=== PATIENT | female | born 1970 | race Caucasian/White ===

== ENCOUNTER 2018-07-14 09:47 | Emergency (ER) | payer OTHER, SELFPAY ==
[2018-07-14 09:52] VITALS: PULSE 71; RESP 18; TEMP 36.8; O2SAT 100
--- NOTE | 2018-07-14 10:00 | W.ED.GENAD ---
Discharge Plan Disposition Patient Disposition: HOME Condition: Stable Discharge Details Chief Complaint: Nk/Back Pain Clinical Impression: Sciatica Primary Care Provider: Sharri Campos ED Provider: Damaris Cowan Home Meds and New Rx's Prescriptions: New prednisone 20 mg tablet See Rx Instructions .ROUTE .COMPLEX Qty: 12 RF: 0 methocarbamol 750 mg tablet 750 mg PO Q8H PRN (Reason: muscle spasm) Qty: 14 RF: 0 Continued hsxjsxkuajyl-omld-cgkuo acid [Daily Multiple] 1 EACH tablet 1 ea PO DAILY RF: 0 Thrive supplement 1 dose PO DAILY RF: 0 Discharge Instructions Instructions: Sciatica (ED) Additional Instructions: Alternate Tylenol and Motrin as needed and directed for pain. Take the muscle relaxers as needed and directed for muscle spasm. Take the steroids until finished. Follow-up with your primary care doctor next week for reevaluation. Return immediately to the emergency department with any worsening or concerning symptoms. Discharge Data Discharge Physician: Damaris Cowan Medical Decision Making 48-year-old female with a history of sciatica who is very active with exercise who presents with left buttock pain with radiation of pain down left leg to left foot for the past 4 days. Denies cauda equina symptoms. Vitals within normal limits. Patient appears nontoxic. Normal examination to lower back and buttocks. No tenderness to palpation of the back or buttocks. Neurovascularly intact. Last menstrual period 3 weeks ago. Patient denies chance of . Patient refusing test. As patient has an essentially normal exam, with no evidence of trauma, infection, rash and is neurovascularly intact, does not appear consistent with a neurological process or muscle spasm or strain and appears likely consistent with sciatica. Patient offered dose of steroids here but she declines. Will send home with a prescription for prednisone and methocarbamol. She is instructed to alternate Tylenol and Motrin, ice and heat and to continue stretching. She is instructed to refrain from heavy exercise while symptoms present. She is instructed follow with primary care doctor for reevaluation and return here if worse. HPI General Mode of arrival: ambulatory. Date/Time Provider Initiated Documentation: 07/14/18 10:00. Limitations to Documentation: no limitations. Information obtained by: patient. HPI Narrative: Patient is a 48-year-old female with a history of sciatica who presents with concern for sciatica for the past 4 days. Patient states she took a spin class 6 days ago and then 1-2 days later she developed pain in her left buttock rating down to her left foot. She states the pain is worse with sitting, laying down and when driving but better with standing. She has been taking ibuprofen and applying ice without relief. She states she is very active and she does boxing, lifting, and she does often stretch. She denies fever, abdominal pain, leg weakness or numbness, saddle anesthesia, bowel or bladder incontinence. Related Data Home Medications Medication Instructions Recorded Confirmed mpfxznhaljlz-ijrm-uezrc acid 1 ea PO DAILY 06/01/14 09/26/15 [Daily Multiple] Thrive Supplement 1 dose PO DAILY 11/28/15 methocarbamol 750 mg PO Q8H PRN #14 tab 07/14/18 prednisone See Rx Instructions .ROUTE 07/14/18 .COMPLEX #12 tab Previous Rx's Medication Instructions Recorded methocarbamol 750 mg PO Q8H PRN #14 tab 07/14/18 prednisone See Rx Instructions .ROUTE 07/14/18 .COMPLEX #12 tab Allergies Allergy/AdvReac Type Severity Reaction Status Date / Time Penicillins Allergy Severe Hives Unverified 08/09/17 12:53 General Stated Complaint: Nk/Back Pain MARJORIE: 4 Review of Systems Review of Systems All systems reviewed & are unremarkable except as noted in HPI and below Constitutional Reports as per HPI, Denies chills and Denies fever(s) Eyes Denies blurry vision ENT Denies dizziness, Denies sore throat and Denies throat swelling Cardiovascular Denies chest pain and Denies dyspnea Respiratory Denies cough and Denies dyspnea Gastrointestinal Denies abdominal pain, Denies diarrhea and Denies vomiting Genitourinary Denies hematuria and Denies dysuria Musculoskeletal Reports back pain, Denies numbness and Reports other (L buttock pain with radiation down leg to foot) Integumentary/Breasts Denies lesions and Denies rash Neurologic Denies dizziness, Denies focal weakness and Denies numbness Allergic/Immunologic Denies throat swelling [facility] Medical History Lumbar disc herniation (Acute) Sciatica (Acute) Surgical History section Social History (Reviewed 07/14/18 @ 10:22 by QUE Martinez Smoking/Tobacco Use Status: Never Alcohol Intake: never Drug use: Never Do you feel safe at home: Yes Do you feel safe in your relationship?: Yes Exam Const General: cooperative, healthy appearing and no acute distress HENMT Head: normal to inspection Face and sinus: normal facial exam Eyes General: appearance normal, both eyes and all related structures EOM: EOM intact bilaterally Neck Neck: normal visual inspection and No submandibular swelling Chest Chest: normal inspection of the chest and no tenderness Resp Effort & Inspection: normal respiratory effort and able to speak in complete sentences Auscultation: clear to auscultation bilaterally Cardio Rate: regular rate Rhythm: regular rhythm GI Inspection: normal to inspection Palpation: soft, not firm, not rigid and nontender Auscultation: normal bowel sounds Back/Spine/Pelvis Thoracic/Lumbar Spine: thoracic and lumbar spine normal to inspection, No thoracic spinal tenderness and No lumbar spinal tenderness Sacrum: no ecchymosis, no erythema, no swelling and no tenderness Coccyx: no swelling Skin General skin exam: no rashes or lesions noted Neuro General: alert, awake and oriented x3 Cognition: normal cognition Speech: speech normal Motor: muscle tone normal throughout and strength 5/5 throughout Sensory Exam: no sensory deficits noted DTR's: Rt Patellar: 1+, Lt Patellar: 1+, Rt Ankle: 1+ and Lt Ankle: 1+ Plantar Reflexes: Equivocal: bilateral Extrem General: normal to inspection, full ROM and no edema Psych Appearance: grossly normal Mental Status: mental status grossly normal Speech and Movement: speech and movement normal Affect: normal affect Course Vital Signs Temperature 98.2 F 07/14/18 09:52 Pulse 71 07/14/18 09:52 Respiratory Rate 18 07/14/18 09:52 Pulse Oximetry 100 07/14/18 09:52 Temperature 98.2 F 07/14/18 09:52 Pulse 71 07/14/18 09:52 Respiratory Rate 18 07/14/18 09:52 Respiratory Effort Non-Labored 07/14/18 09:54 Pulse Oximetry 100 07/14/18 09:52 Oxygen Delivery Method Room Air 07/14/18 09:52 Oxygen Flow Rate 0 07/14/18 09:52 Pain Level 6 07/14/18 09:52
== END 2018-07-14 10:20 | disposition home or self-care (01) ==
PROVIDERS: Emergency Provider Physician Assistant; PCP Family Medicine
DX: M54.32 Sciatica, left side (principal)
CPT/HCPCS: 99282

== ENCOUNTER 2020-04-01 15:37 | Outpatient (REF) | payer OTHER, SELFPAY ==
--- NOTE | 2020-04-01 14:00 | PAPFT_PTH ---
PATIENT: Eulalia Del Rosario LOC: [facility] U#:[id number] AGE/SX: 49/F ROOM: RE04/01/[address]: AMIE Mann : 1970 BED: DIS: 04/01/2020 SPEC #: [id number] RECD: 04/01/20 18:41 STATUS: DANNIE REQ #: [id number] JAZZ: 04/01/20 14:[address]: Chelsie Prater DEPT: [facility] Cytology RECD BY: Sheri Pickard ENTERED: 04/01/20 18:42 SP TYPE: PAPFT LIVE DR: AMIE Sabillon Tissues: 1 - CX/ENDOCX FOR PAP SMEARS Procedures: PAP THIN PREP/UVM Screening HPV DNA PROBE Comments: [id number]
== END 2020-04-01 15:57 ==
LOC: LBN 15:37
PROVIDERS: PCP Nurse Practitioner Family; Visit Provider Nurse Practitioner Family
DX: Z12.4 Encounter for screening for malignant neoplasm of cervix (principal); Z11.51 Encounter for screening for human papillomavirus (HPV)
CPT/HCPCS: 88142; 87624

== ENCOUNTER 2020-04-10 01:12 | Outpatient (CLI) | payer OTHER, SELFPAY ==
--- NOTE | 2020-04-10 09:00 | DI.MAMMO_ITS ---
EXAM: MG MAMMO SCREENING CLINICAL HISTORY: screening TECHNIQUE: Mammograms were interpreted according to the usual protocol including computer analysis w [employer] CAD system, tomosynthesis and C-view imaging. COMPARISON: FINDINGS: The breasts are heterogeneously dense. No dominant mass or clumped microcalcification is identified in either breast. The current examination is compared with previous examination August 2017 and there h as been no gross interval change in appearance in comparison with the prior study. IMPRESSION: No specific evidence of malignancy at this time. Routine screening examinations are suggested at yea rly intervals in this age group according to the ACS ACR guidelines. BI-RADS Category 1 - Negative Breast Density - Category C - Heterogeneously dense
== END 2020-04-10 01:32 ==
PROVIDERS: PCP Nurse Practitioner Family; Visit Provider Nurse Practitioner Family
DX: Z12.31 Encounter for screening mammogram for malignant neoplasm of breast (principal)
CPT/HCPCS: 77063; 77067

== ENCOUNTER 2020-06-13 04:03 | Outpatient (CLI) | payer OTHER, SELFPAY ==
[2020-06-13 09:25] LABS: Hemoglobin A1C 5.5 % (<5.7)
[2020-06-13 09:26] LABS: Anion Gap 7.7 mmol/L (3-11); BUN 19 mg/dL (7-18); CO2 29.3 mmol/L (21.0-32.0); Calcium 8.7 mg/dL (8.5-10.1); Calculated LDL 127 mg/dL (<100); Chloride 106 mmol/L (98-107); Cholesterol 216 mg/dL (<200); Estimated GFR 59.18 (mL/min/1.73m2); Glucose 89 mg/dL (74-106); HDL Cholesterol 82 mg/dL (40-60); Sodium 143 mmol/L (136-145); Triglyceride 36 mg/dL (<150)
== END 2020-06-13 04:04 | disposition home or self-care (01) ==
LOC: LBO 04:03
PROVIDERS: PCP Nurse Practitioner Family; Visit Provider Nurse Practitioner Family
DX: E78.5 Hyperlipidemia, unspecified (principal)
CPT/HCPCS: 36415; 80048; 80061; 83036

== ENCOUNTER 2020-06-24 15:27 | Outpatient (REF) | payer OTHER, SELFPAY ==
[2020-06-24 20:48] LABS: Abs Immature Grans 0.02 10^3/uL (0.0-0.06); Absolute Basophil Count 0.05 10^3/uL (0.0-0.2); Absolute Eosinophil Count 0.09 10^3/uL (0.0-0.7); Absolute Lymphocyte Count 2.46 10^3/uL (1.2-3.4); Absolute Monocyte Count 0.51 10^3/uL (0.1-0.8); Absolute Neutrophil Count 5.05 10^3/uL (1.2-6.7); Basophils % 0.6; Eosinophils % 1.1; HGB 13.1 g/dL (11.2-15.7); Immature Grans % 0.2; Lymphocytes % 30.1; MCH 27.5 pg (27.0-33.0); Monocytes % 6.2; Neutrophils % 61.8; Nucleated RBC 0 %; Platelet Count 333 10^3/uL (130-400); RBC 4.77 10^6/uL (3.93-5.22); RDW 13.4 % (11.7-14.6); RDW-SD 42.2 fL; WBC 8.18 10^3/uL (4.4-10.8)
== END 2020-06-24 15:28 | disposition home or self-care (01) ==
LOC: LBN 15:27
PROVIDERS: PCP Nurse Practitioner Family; Visit Provider Nurse Practitioner Family
DX: Z00.00 Encounter for general adult medical examination without abnormal findings (principal)
CPT/HCPCS: 85025

== ENCOUNTER → 2022-03-27 00:29 | Outpatient (CLI) | payer OTHER, SELFPAY ==
--- NOTE | 2022-03-27 11:51 | DI.MAMMO_ITS ---
Exam(s) MAMMO SCREENING EXAM: MAMMO SCREENING CLINICAL HISTORY: screening,Z12.39. TECHNIQUE: Bilateral full field digital CC and MLO mammographic images were obtained with 3D tomosyn thesis and utilizing computer aided detection (CAD). COMPARISON: Prior mammograms were reviewed. FINDINGS: There has been no significant change in the appearance and distribution of the fibroglandular tissue which is again noted be dense.. There are no new findings in the immediate vicinity of the biopsy marker clip in the left breast. There are no new obvious spiculated masses nor malignant appearing microcalcification groups. There is no significant architectural distortion nor skin thickening-retraction. IMPRESSION: Dense bilateral fibroglandular tissue. No obvious radiographic evidence of malignancy nor significan t change compared to prior mammograms. BI-RADS Category 1 - Negative Breast Density - Category C - Heterogeneously dense Breast density Category C or D implies that the patient has dense breast tissue. Dense breast tissue can make it harder to find cancer on a mammogram. Dense breast tissue is also associated with an incr eased risk of breast cancer. This information about the result of the mammogram report was provided to the patient to raise their awareness. Use this report when you speak with the patient about their risks for breast cancer, which includes their family history. At that time, you may recommend additional screening tests (Ultrasoun d or MRI) as these tests may add significant information. A negative radiographic report should not delay biopsy if a dominant or clinically suspicious mass is present. Up to ten percent of cancers are not identified on mammography. A negative report may reinforce clinical impression. Adenosis and dense breasts may obscure an underlying neoplasm. False positive reports average 6 to 10%. Patient will receive a letter notifying them of these results.
== END ==
PROVIDERS: PCP Nurse Practitioner Family; Visit Provider Nurse Practitioner Family
DX: Z12.31 Encounter for screening mammogram for malignant neoplasm of breast (principal)
CPT/HCPCS: 77063; 77067

== ENCOUNTER 2022-06-26 06:12 | Day surgery (SDC) | payer OTHER, SELFPAY ==
--- NOTE | 2022-06-25 13:33 | W.ANESPRE ---
General Info Date of Service Date Performed: 06/26/22 Height: 5 ft 8 in Weight: 75.41 kg Body Mass Index (BMI): 25.2 Surgical Procedure: Operation Date: 06/26/22 07:35 Proposed Procedure Side Surgeon issac Santana MD Meds Allergies and Home Medications Allergies Allergy/AdvReac Type Severity Reaction Status Date / Time Penicillins Allergy Severe Hives Verified 06/26/22 06:19 Home Medication Medication Instructions Recorded black cohosh 200 mg capsule 200 mg PO DAILY 06/18/22 calcium carbonate 600 mg calcium 600 mg PO BID 06/18/22 (1,500 mg) tablet (Calcium) Current Visit Medications: Current Medications Generic Name Dose Route Start Last Admin Trade Name Freq PRN Reason Stop Dose Admin Ringer's Solution 1,000 mls @ 80 mls/hr 06/26/22 06:00 IV 06/26/22 23:59 INFUSION EAGLE IV Miscellaneous Supplies 1 each 06/26/22 06:00 Iv Access IV 06/26/22 23:59 DIRECTED EAGLE Sodium Chloride 0 ml 06/26/22 06:00 Normal Saline Flush 10 Ml Syr IV 06/26/22 23:59 PRN PRN Sodium Chloride 0 ml 06/26/22 06:00 Normal Saline 10 Ml Vial IJ 06/26/22 23:59 DIRECTED PRN Sterile Water 0 ml 06/26/22 06:00 Water,Injection,Sterile 10 Ml Vial IJ 06/26/22 23:59 DIRECTED PRN PFSH Active Problems Active Problems: Problem Status Onset Code Hyperlipidemia E78.5 Insomnia G47.00 Medical History Medical History Lumbar disc herniation Surgical History Surgical History S/P section Tobacco Smoking/Tobacco Use Status: Former Tobacco Use Alcohol Alcohol Intake: current Alcohol intake frequency: a few times a month Substance Use Substance use: Never Substance use type: does not use Vital Signs and Lab Results Vital Signs Most Recent Vital Signs in EMR: Temp Pulse Resp BP Pulse Ox 36.4 C L 68 16 128/85 100 06/26/22 06:21 06/26/22 06:21 06/26/22 06:21 06/26/22 06:21 06/26/22 06:21 Lab Results Blood Type / Crossmatch: No Data to Display Complete Blood Count: No Data to Display Complete Metabolic Panel: No Data to Display Liver Function Panel: No Data to Display Coagulation Panel: No Data to Display Cardiac Panel: No Data to Display Arterial Blood Gas: No Data to Display Venous Blood Gas: No Data to Display Pancreas Panel: No Data to Display Thyroid Panel: No Data to Display Infectious Disease: No Data to Display Blood Cultures: No Data to Display Toxicology Panel: No Data to Display Panel: No Data to Display Anesthesia Assessment and Plan Anesthesia History Personal History: No History of Anesthesia Complications Family History: No Family History of Anesthesia Complications Exercise Tolerance Exercise Tolerance: Metabolic Equivalents>4 Cardiac & Pulmonary Exam Cardiac Exam: Normal S1/S2 Heart Sounds Pulmonary Exam: Clear Bilateral Breath Sounds Implantable Cardiac Device Does patient have a Pacemaker or an ICD?: No Airway Exam Known Difficult Airway: No Mallampati Class: 2 Mouth Opening: Normal (> 3cm) Thyromental Distance: Greater than 3 cm Neck Range of Motion: Full ROM Neck Circumference: Normal Teeth Condition: Normal Dentition ASA Classification ASA Score: ASA 2 Emergency Case?: No NPO Status NPO Status: NPO Clears >2 hours, Solids >8 hours Status Status: Not Relevant due to Medical History Anesthesia Plan Resuscitation Status: Full Code Anesthesia Technique: General Anesthesia Airway Planned: Natural Airway Monitors Used: Standard Monitors Preoperative Comments:: 52 yo female for screening colo. Sig PMHx: low back pain, former smoker, occ EtOH.
--- NOTE | 2022-06-25 21:01 | W.PM.DSUDISC ---
Date of service: 06/26/22 Time of Service: 08:08 Discharge Plan Disposition Condition: Good Discharge Details Reason For Visit: Colonoscopy Attending Provider: Tomás Santana Primary Care Provider: Rosa aCrlton Home Meds and New Rx's Prescriptions: Continued black cohosh 200 mg capsule 200 mg PO DAILY calcium carbonate [Calcium 600] 600 mg calcium (1,500 mg) tablet 600 mg PO BID Discontinued polyethylene glycol 3350 17 gram/dose powder 238 g PO ONCE Qty: 238 0RF Rx Instructions: take per colonoscopy instructions bisacodyl [Dulcolax (bisacodyl)] 5 mg tablet,delayed release (DR/EC) 5 mg PO ONCE Qty: 4 0RF Rx Instructions: take per colonoscopy instructions Discharge Instructions Additional Instructions: Eulalia, we were able to complete your colonoscopy today. The quality of your prep was excellent. I did not see any signs of tumors or polyps. In fact, I did not see anything out of the ordinary. You should get another screening colonoscopy in 10 years. 1. If tolerated, consume a soft, low fiber diet for 1-2 days. 2[address] Do not drive, drink alcohol, operate machinery, make critical decisions, or do activities that require coordination or balance for 24 hours. 3. Because air was put into your colon during the procedure, expelling air from your rectum (passing gas or farting) is normal. 4. You may not have a bowel movement for 1-3 days because of the colonoscopy prep. This is normal. 5. Go directly to the emergency room if you notice any of the following: Develop chills (warm to touch), or if you have a thermometer and your temperature is above 101 Difficulty breathing or difficultly swallowing Persistent vomiting Severe abdominal pain, other than gas cramps Severe chest pain Black, tarry stools Any bleeding ? exceeding one tablespoon 6. Call your physician if the site where your intravenous was started becomes red, swollen, painful, and warm to touch. 7. Your physician has reviewed your pre-procedure medications. Please continue to take those medications as previously ordered. You will be given specific information/education regarding any changes to your medications before leaving. Activity:: Activity as Tolerated Diet:: As Tolerated DS: Diagnosis Discharge Diagnosis (1) Screening for colon cancer: Status: Acute Asessment and Plan: Negative screening colonoscopy today. The next 1 should be in 10 years
--- NOTE | 2022-06-25 21:03 | W.COLOREPORT ---
Date of service: 06/26/22 Time of Service: 08:09 Colonoscopy Report Date of procedure: 06/26/22 Pre-op diagnosis general: Screening colonoscopy Post-op diagnosis procedure note: same Procedure: Colonoscopy Surgeon: Tomás Santana Anesthesia Type: General:No Airway Estimated blood loss (mL): 0 Pathology: none sent Complications: None Disposition: same day Indications: Eulalia is a 52 year old woman here for her fiest screening colonoscopy Prep: Miralax/Dulcolax Procedure Start Time: 07:30 Procedure End Time: 07:54 Retraction Time: 14 Findings: Normal colonoscopy Procedure Description: After the induction of monitored anesthetic care, and with the patient in left lateral decubitus position, I began by performing an external anorectal exam.? Perineum and skin were normal, as was the anal verge.? There was no evidence of external hemorrhoids.? Next, I performed a digital rectal exam.? I did not appreciate any abnormal findings.? Next, I advanced a colonoscope into the rectal vault.? I performed retroflexion.? This appeared normal.? Using insufflation, I then advanced the colonoscope beyond the rectal folds and into the sigmoid colon before advancing towards the cecum.? The quality of the prep was adequate.? The scope was noted to be in the cecum by identification of the ileocecal valve and appendiceal orifice.? I then began withdrawing the colonoscope using repeated irrigation as necessary for full evaluation of the colonic mucosa. ?Once the scope was withdrawn to the level of the rectum, great care was taken to examine portions of the rectal folds.? Finally, the scope was withdrawn and the patient was brought to the same-day surgery recovery unit as the anesthetic wore off. ?The findings and instructions were shared with the patient prior to discharge.
[2022-06-26 06:21] VITALS: BP 128/85; PULSE 68; RESP 16; TEMP 36.4; O2SAT 100
[2022-06-26] MEDS: Lactated Ringers 1,000 ML 80 ML IV (06:39)
[2022-06-26 07:00] VITALS: BMI 25.2
[2022-06-26 08:01] VITALS: BP 109/78; PULSE 59; RESP 16; TEMP 36.4; O2SAT 100
--- NOTE | 2022-06-26 08:08 | W.ANESPOSTOP ---
Postoperative Evaluation Date, Time and Location Date Performed: 06/26/22 Time Performed: 08:09 Patient Location: Day Surgery Unit Vital Signs Most Recent Imported Vital Signs: Most Recent Vital Signs Temp Pulse Resp BP Pulse Ox 36.4 C L 59 L 16 109/78 100 06/26/22 08:01 06/26/22 08:01 06/26/22 08:01 06/26/22 08:01 06/26/22 08:01 Pain Score Most Recent Pain Score: Most Recent Pain Score Pain Level 0 06/26/22 08:01 Assessment Mental Status: Awake (Alert & Oriented to Patient Baseline) Airway and Respiratory Function: Patent airway with normal (patient baseline) respiratory exam Cardiovascular Function: Hemodynamically Stable Hydration Status: Adequately Hydrated Nausea & Vomiting: No Nausea or Vomiting Pain: Pt. Denies Any Pain Peripheral Nerve Block: Patient did not receive a nerve block
[2022-06-26 08:33] VITALS: BP 126/93; PULSE 54; RESP 18; TEMP 36.5; O2SAT 99
== END 2022-06-26 08:40 | disposition home or self-care (01) ==
PROVIDERS: PCP Nurse Practitioner Family; Visit Provider Surgery
PROC: 0DJD8ZZ Inspection of Lower Intestinal Tract, Via Natural or Artificial Opening Endoscopic (ICD-10-PCS; CPT 45378; principal; 2022-06-26 07:30)
DX: Z12.11 Encounter for screening for malignant neoplasm of colon (principal)
CPT/HCPCS: 45378

== ENCOUNTER 2022-12-04 12:49 | Outpatient (REF) | payer OTHER, SELFPAY ==
[2022-12-04 15:36] LABS: Abs Immature Grans 0.01 10^3/uL (0.0-0.06); Absolute Basophil Count 0.05 10^3/uL (0.0-0.2); Absolute Eosinophil Count 0.05 10^3/uL (0.0-0.7); Absolute Lymphocyte Count 1.74 10^3/uL (1.2-3.4); Absolute Neutrophil Count 3.49 10^3/uL (1.2-6.7); Basophils % 0.9; Eosinophils % 0.9; HCT 41.8 % (36.0-46.0); HGB 13.4 g/dL (11.2-15.7); Immature Grans % 0.2; Lymphocytes % 30.3; MCH 26.9 pg (27.0-33.0); MCHC 32.1 % (32.0-36.0); MCV 84 fL (80-95); MPV 9.8 fL (8.0-11.0); Neutrophils % 60.7; Platelet Count 310 10^3/uL (130-400); RBC 4.99 10^6/uL (3.93-5.22); RDW 14.5 % (11.7-14.6); RDW-SD 44.1 fL; WBC 5.74 10^3/uL (4.4-10.8)
[2022-12-04 20:20] LABS: ALT 22 U/L (14-59); AST 19 U/L (15-37); Albumin 4.1 g/dL (3.4-5.0); Alkaline Phosphatase 61 U/L (46-116); Anion Gap 7.5 mmol/L (3-11); BUN 26 mg/dL (7-18); Bilirubin, Total 0.6 mg/dL (0.2-1.0); CO2 30.5 mmol/L (21.0-32.0); CREATININE 0.9 mg/dL (0.55-1.02); Calcium 9.4 mg/dL (8.5-10.1); Chloride 102 mmol/L (98-107); Estimated GFR 77.88 (mL/min/1.73m2); Glucose 92 mg/dL (74-106); Magnesium 2.1 mg/dL (1.8-2.4); Potassium 4.1 mmol/L (3.5-5.1); Sodium 140 mmol/L (136-145); Total Protein 7.1 g/dL (6.4-8.2)
[2022-12-04 20:52] LABS: Creatine Kinase 54 U/L (26-192)
== END 2022-12-04 12:50 | disposition home or self-care (01) ==
LOC: LBN 12:49
PROVIDERS: PCP Nurse Practitioner Family; Visit Provider Physician Assistant
DX: R20.2 Paresthesia of skin (principal); E78.5 Hyperlipidemia, unspecified
CPT/HCPCS: 80053; 82550; 83735; 85025

== ENCOUNTER 2023-06-16 12:40 | Outpatient (REF) | payer OTHER, SELFPAY ==
--- NOTE | 2023-06-16 11:30 | PAPFT_PTH ---
PATIENT: Eulalia Del Rosario LOC: [facility] U#:[id number] AGE/SX: 53/F ROOM: RE06/16/[address]: Elayne Barragan NP : 1970 BED: DIS: 06/16/2023 SPEC #: [id number] RECD: 06/16/23 13:11 STATUS: DANNIE KRAMER #: [id number] JAZZ: 06/16/23 11:[address]: Elayne Barragan NP DEPT: [facility] Cytology RECD BY: Sheri Pickard ENTERED: 06/16/23 13:12 SP TYPE: PAPFT OTHR DR: Rosa Carlton, DANCING INSTRUCTOR Tissues: 1 - CX/ENDOCX FOR PAP SMEARS Procedures: PAP THIN PREP/UVM Screening HPV DNA PROBE Comments: [id number]
== END 2023-06-16 12:41 | disposition home or self-care (01) ==
LOC: LBN 12:40
PROVIDERS: PCP Nurse Practitioner Family; Visit Provider Nurse Practitioner Women's Health
DX: Z12.4 Encounter for screening for malignant neoplasm of cervix (principal); Z11.51 Encounter for screening for human papillomavirus (HPV)
CPT/HCPCS: 88142; 87624

== ENCOUNTER 2024-07-10 01:00 | Outpatient (CLI) | payer OTHER, SELFPAY ==
--- NOTE | 2024-07-10 13:03 | DI.MAMMO_ITS ---
Exam(s) MAMMO SCREENING EXAM: MAMMO SCREENING CLINICAL HISTORY: screening TECHNIQUE: Bilateral full field digital CC and MLO mammographic images were obtained with 3D tomosyn thesis and utilizing computer aided detection (CAD). COMPARISON: Available for comparison. FINDINGS: Masses/Architectural Distortion: No suspicious nodules or areas of architectural distortion are seen. There is a biopsy clip again seen in the outer left breast. Microcalcifications: No suspicious pleomorphic-type are seen. Skin Thickening/Nipple Retraction: None. IMPRESSION: 1. No significant interval change with no specific features of malignancy noted. 2. Unless there is more urgent need, screening mammography is recommended, as per [employer] guidelines. BI-RADS Category 1 - Negative Breast Density - Category C - Heterogeneously dense Breast density category C or D implies that the patient has dense breast tissue. Dense breast tissue is very common and is not abnormal but dense breast tissue can make it harder to find cancer on a ma mmogram. Also, dense breast tissue may increase their breast cancer risk. This information about the result of the mammogram report was provided to the patient to raise their awareness. Use this report when you speak with the patient about their risks for breast cancer, which includes their family hist ory. At that time, you may recommend for more screening tests (Ultrasound or MRI) as they might be us eful based on their risk. A negative radiographic report should not delay biopsy if a dominant or clinically suspicious mass is present. Up to ten percent of cancers are not identified on mammography. A negative report may reinforce clinical impression. Adenosis and dense breasts may obscure an underlying neoplasm. False positive reports average 6 to 10%. Patient will receive a letter notifying them of these results.
== END 2024-07-10 01:20 ==
LOC: DI 01:00
PROVIDERS: Visit Provider Nurse Practitioner Women's Health
DX: Z12.31 Encounter for screening mammogram for malignant neoplasm of breast (principal); R92.333 Mammographic heterogeneous density, bilateral breasts
CPT/HCPCS: 77063; 77067